=== PATIENT | female | born 1990 | race Hispanic/Latino ===

== ENCOUNTER 2022-05-17 08:13 | Emergency (ER) | payer BC ==
[~2022-05-17] VITALS: Ht 167.6 cm; Wt 116.1 kg
[2022-05-17 08:15] VITALS: BP 163/100
[2022-05-17 08:39] LABS: APPEARANCE,URINE CLOUDY (CLEAR); BILIRUBIN,URINE NEGATIVE (NEGATIVE); COLOR,URINE COLORLESS (YELLOW); GLUCOSE, URINE (UA) NEGATIVE (NEGATIVE); KETONES,URINE NEGATIVE (NEGATIVE); LEUKOCYTE ESTERASE ,URINE 500 Leu/uL (NEGATIVE); NITRATE,URINE NEGATIVE (NEGATIVE); OCCULT BLOOD,URINE NEGATIVE (NEGATIVE); PROTEIN,URINE NEGATIVE (NEGATIVE); UROBILINOGEN,URINE 0.2 mg/dL (0.2-1.0)
[2022-05-17 08:47] LABS: HCG,QUALITATIVE URINE NEGATIVE (NEGATIVE)
[2022-05-17 08:52] LABS: BACTERIA,URINE FEW /HPF (None Seen); MUCUS,URINE RARE LPF (None Seen); SQUAMOUS EPITHELIAL CELL,UR MANY /HPF (0-2); WBC,URINE 26-50 /HPF (0-1)
[2022-05-17] MEDS ORDERED: ONDA4TAB10 PO (09:59)
[2022-05-17] MEDS ORDERED: LINA72CA PO (09:59)
[2022-05-17] MEDS ORDERED: CEPH500B PO (09:59)
== END 2022-05-17 10:06 | disposition home or self-care (01) ==
LOC: EDH 08:13
DX: K59.00 Constipation, unspecified (principal); N39.0 Urinary tract infection, site not specified
CPT/HCPCS: 74018; 81001; 81025; 87088